=== PATIENT | female | born 1980 | race Caucasian/White ===

== ENCOUNTER 2016-05-30 23:16 | Emergency (ER) | payer OTHER ==
--- NOTE | 2016-06-01 02:29 | ED NURSING NOTES ---
Clinical Report - Nurses [facility] [address] [place] [address] 05/31/2016 4:01 Patient: TYRELL LAROSE TRIAGE Triage time 2212May 30 2016. Chief Complaint: RIGHT LOWER EXTREMITY PAIN. --04:15 Onelia Andres R.N. ( see paper chart for all nursing notes.). --04:15 Onelia Andres R.N. Weight: 45.3 kg estimated. Height/Length: 57 inches Estimated. BMI: 21.6. --04:18 Onelia Andres R.N. Medications Suboxone Sublingual 20mg, daily. --04:16 Onelia Andres R.N. Allergies No Known Drug Allergy. --04:16 Onelia Andres R.N. DISPOSITION / DISCHARGE Departure time: May 30 2016. --04:16 Onelia Andres R.N. Locked/Released at 05/31/2016 4:18 by Onelia Andres R.N.
--- NOTE | 2016-06-01 02:29 | ED NURSING NOTES ---
Clinical Report - Nurses [place] [address] [place] [address] 05/31/2016 4:01 Patient: TYRELL LAROSE TRIAGE Triage time 2212May 30 2016. Chief Complaint: RIGHT LOWER EXTREMITY PAIN. --04:15 Onelia Andres R.N. ( see paper chart for all nursing notes.). --04:15 Onelia Andres R.N. Weight: 45.3 kg estimated. Height/Length: 57 inches Estimated. BMI: 21.6. --04:18 Onelia Andres R.N. Medications Suboxone Sublingual 20mg, daily. --04:16 Onelia Andres R.N. Allergies No Known Drug Allergy. --04:16 Onelia Andres R.N. DISPOSITION / DISCHARGE Departure time: May 30 2016. --04:16 Onelia Andres R.N. Locked/Released at 05/31/2016 4:18 by Onelia Andres R.N.
--- NOTE | 2016-06-01 02:29 | ED MED RECONCILIATION SUMMARY ---
Patient: TYRELL LAROSE Medication Reconciliation Report [facility] VisitID: [id number] [address] [place] [address] 35y, F Registration Date/Time: 05/30/2016 Weight: 45.3 kg Height/Length: 57 in. BMI: 21.6 ALLERGIES: No Known Drug Allergy The patient's Home Medications are listed below: THE FOLLOWING MEDICATIONS NEED TO BE RECONCILED: Suboxone Sublingual 20mg, daily The source(s) of the original Home Medication information: Not obtained. The following Medications were given to the patient in the Emergency Department: None. The following Medications were prescribed to the patient: Acetaminophen (available over the counter): take according to label instructions. -- Darrion Honeycutt DO Motrin (available over the counter): take according to label instructions. -- Darrion Honeycutt DO Bactrim DS 800 mg / 160 mg: take 1 tablet orally every 12 hours for 10 days. No refill. Substitution is permissible. -- Darrion Honeycutt DO Keflex 500 mg: take 1 capsule orally every 6 hours for 10 days. No refill. Substitution is permissible. -- Darrion Honeycutt DO
--- NOTE | 2016-06-01 02:29 | ED CLINICAL REPORT ---
Clinical Report - Physicians/Mid Levels [facility] [address] [place] [address] 05/31/2016 4:01 Patient: TYRELL LAROSE Arrived- By private vehicle. Historian- patient. HISTORY OF PRESENT ILLNESS Chief Complaint: SKIN RASH and TENDER AREA. This started several days ago and is still present. It was gradual in onset and has been waxing/waning. It is described as painful. It has been located on the face and right foot. No cause has been identified. Similar symptoms previously: Recent medical care: Not recently seen/assessed. REVIEW OF SYSTEMS No fever, sore throat, difficulty breathing, headache or chest pain. No abdominal pain, difficulty with urination or vomiting. PAST HISTORY Type C hepatitis (possible - is in the process of work up for this). Substance abuse (tobacco, heroin, methamphetamines). No history of HIV illness. SOCIAL HISTORY Smoker- current status unknown. History of IV drug use: heroin. ADDITIONAL NOTES The nursing notes have been reviewed. PHYSICAL EXAM Vital Signs: Blood pressure: BP 138 / 74. Heart rate: 90. Respiratory rate 16. Temperature: 97.9 oral. Oxygen saturation: 100 % room air. Appearance: Alert. Oriented X3. Patient in mild distress. ENT: Pharynx normal. Neck: Neck supple. CVS: Normal heart rate and rhythm. Heart sounds normal. Respiratory: No respiratory distress. Breath sounds normal. Abdomen: Nontender. No organomegaly. Skin: Medium area of cellulitis with tenderness, erythema and warmth to right foot (lateral, dorsal, distal aspect; no clear skin puncture site; no fluctuance or discharge). No lymphangitis. The rash is macular and erythematous. Rash present on the right cheek (honey-colored crusting with erythematous base). There is thickening, inflammation and crusting. No abscess. Extremities: (right foot cellulitis). Neuro: Oriented X 3. No motor deficit. LABS, X-RAYS, AND EKG Pulse Oximetry: 05/31/2016 04:22 O2 saturation: 100%. (FIO2 - room air). Interpretation: normal. PROGRESS AND PROCEDURES Course of Care: Bactrim DS 2 tabs PO. Keflex 500 mg PO given. Right foot does not seem amenable to I&D now - most c/w general cellulitis. Facial lesions c/w impetigo. No fever or other systemic symptoms. Pt is informed of the need for close out pt follow up and / or return to emergency for new or worsening symptoms or any concerns. Patient/family counseled. Old ED records reviewed. Disposition: Discharged. Condition: stable and improved. CLINICAL IMPRESSION Nonbullous impetigo (involving the right face). Cellulitis of the right foot. Recovering substance abuse- heroin. INSTRUCTIONS Drink plenty of fluids. Do not smoke. No alcohol. Warnings: Further evaluation is necessary. It is very important to follow up with a physician. GENERAL WARNINGS: Return or contact your physician immediately if your condition worsens or changes unexpectedly, if not improving as expected, or if other problems arise. Prescription Medications: Bactrim DS 800 mg / 160 mg: take 1 tablet orally every 12 hours for 10 days. No refill. Substitution is permissible. Keflex 500 mg: take 1 capsule orally every 6 hours for 10 days. No refill. Substitution is permissible. OTC Medications: Acetaminophen (available over the counter): take according to label instructions. Motrin (available over the counter): take according to label instructions. Follow-up: Follow up with your doctor tomorrow. (Electronically signed by Darrion Honeycutt DO 05/31/2016 4:28)
--- NOTE | 2016-06-01 02:29 | ED DISCHARGE INSTRUCTIONS ---
Patient: TYRELL LAROSE General Instructions [facility] VisitID: [id number] [place] [address] 35y, F Registration Date/Time: 05/30/2016 Nonbullous impetigo (involving the right face). Cellulitis of the right foot. Recovering substance abuse- heroin. INSTRUCTIONS Drink plenty of fluids. Do not smoke. No alcohol. Warnings: Further evaluation is necessary. It is very important to follow up with a physician. GENERAL WARNINGS: Return or contact your physician immediately if your condition worsens or changes unexpectedly, if not improving as expected, or if other problems arise. Prescription Medications: Bactrim DS 800 mg / 160 mg: take 1 tablet orally every 12 hours for 10 days. No refill. Substitution is permissible. Keflex 500 mg: take 1 capsule orally every 6 hours for 10 days. No refill. Substitution is permissible. OTC Medications: Acetaminophen (available over the counter): take according to label instructions. Motrin (available over the counter): take according to label instructions. Follow-up: Follow up with your doctor tomorrow. ADDITIONAL INFORMATION Impetigo Impetigo is the name for a bacterial infection of the skin. It is common in children. It may start as an infected insect bite or scratch and spread rapidly to other areas of the body. It is contagious and can be given to other children by touching. The sores usually have a macias brown crust and grow gradually larger as they spread. Impetigo requires treatment with an antibiotic. Home care The following guidelines will help you care for your infection at home: Trim fingernails and cover sores with an adhesive bandage if necessary to prevent scratching. Picking at the sores may leave a scar. Wash hands (yours and your child's) often. This will avoid spreading the infection to other parts of the body and to other children. Do not let your child share washcloths, towels, pillows, sheets, or clothes with others. Wash these items in hot water before using again. The sores should be washed three times a day with soap and water. Use a washcloth to scrub the sores and remove the crust. Then apply an antibacterial cream as directed. If antibiotic pills or liquid was prescribed, be sure your child takes all the medicine until it is gone. Your child should stay out of school until completing two full days of antibiotic treatment. Use acetaminophen for fever, fussiness or discomfort, unless another medicine was prescribed. In infants over six months of age, you may use ibuprofen instead of acetaminophen. If your child has chronic liver or kidney disease or has ever had a stomach ulcer or GI bleeding, talk with your doctor before using these medicines. (Aspirin should never be used in anyone under 18 years of age who is ill with a fever. It may cause severe liver damage. Follow-up care Follow up with your doctor or this facility if the sores continue to spread after three days of treatment. It will take about 710 days to heal completely. When to seek medical care Get prompt medical attention if any of the following occur: Increasing number of sores or spreading areas of redness after two days of treatment with antibiotics Increasing swelling, or pain Fever of 100.4F (38C) oral or 101.4F (38.5C) rectal or higher, not better with fever medication Increased amounts of fluid or pus coming from the sores Unusual drowsiness, weakness, or change in behavior Loss of appetite or vomiting Cellulitis You have an infection of the skin known as cellulitis. This usually starts with a scrape, cut, insect bite, blister or other opening in the skin which becomes infected. This is a serious condition. It must be watched closely to be sure the infection is not spreading. With antibiotic treatment, the size of the red area will gradually shrink in size until the skin returns to normal. This will take 7-10 days. The red area should never increase in size once the antibiotic medicine has been started. Occasionally, an infection will be resistant to one antibiotic and another one will have to be used. Home Care: 1) Limit the use of the affected part, since excess movement can cause the infection to spread. 2) If the infection is on your leg, walk as little as possible during the first few days of the treatment. Keep your leg elevated while sitting. This will reduce swelling. 3) Take all of the antibiotic medicine exactly as directed until it is gone. Be careful not to miss any doses, especially during the first seven days. Follow Up with your doctor or this facility as directed. Check the infected area daily for the warning signs listed below. Get Prompt Medical Attention if any of the following occur: -- Spreading area of redness -- Increasing swelling or pain -- Appearance of pus or drainage -- Fever over 100.4 F (38.0 C) oral, or over 101.4 F (38.6 C) rectal, after two days on antibiotics Sulfamethoxazole, Trimethoprim Oral tablet What is this medicine? SULFAMETHOXAZOLE; TRIMETHOPRIM or SMX-TMP (suhl fuh meth OK jamila zohl; trye METH oh prim) is a combination of a sulfonamide antibiotic and a second antibiotic, trimethoprim. It is used to treat or prevent certain kinds of bacterial infections. It will not work for colds, flu, or other viral infections. How should I use this medicine? Take this medicine by mouth with a full glass of water. Follow the directions on the prescription label. Take your medicine at regular intervals. Do not take it more often than directed. Do not skip doses or stop your medicine early. Talk to your electrical engineering teacher regarding the use of this medicine in children. Special care may be needed. This medicine has been used in children as young as 2 months of age. What side effects may I notice from receiving this medicine? Side effects that you should report to your doctor or health home health care worker as soon as possible: allergic reactions like skin rash or hives, swelling of the face, lips, or tongue breathing problems fever or chills, sore throat irregular heartbeat, chest pain joint or muscle pain pain or difficulty passing urine red pinpoint spots on skin redness, blistering, peeling or loosening of the skin, including inside the mouth unusual bleeding or bruising unusually weak or tired yellowing of the eyes or skin Side effects that usually do not require medical attention (report to your doctor or health home health care worker if they continue or are bothersome): diarrhea dizziness headache loss of appetite nausea, vomiting nervousness What may interact with this medicine? Do not take this medicine with any of the following medications: aminobenzoate potassium dofetilide metronidazole This medicine may also interact with the following medications: RAMIRO inhibitors like benazepril, enalapril, lisinopril, and ramipril cyclosporine digoxin diuretics indomethacin medicines for diabetes methenamine methotrexate phenytoin potassium supplements pyrimethamine sulfinpyrazone tricyclic antidepressants warfarin What if I miss a dose? If you miss a dose, take it as soon as you can. If it is almost time for your next dose, take only that dose. Do not take double or extra doses. Where should I keep my medicine? Keep out of the reach of children. Store at room temperature between 20 to 25 degrees C (68 to 77 degrees F). Protect from light. Throw away any unused medicine after the expiration date. What should I tell my health care provider before I take this medicine? They need to know if you have any of these conditions: anemia asthma being treated with anticonvulsants if you frequently drink alcohol containing drinks kidney disease liver disease low level of folic acid or [id number] dehydrogenase poor nutrition or malabsorption porphyria severe allergies thyroid disorder an unusual or allergic reaction to sulfamethoxazole, trimethoprim, sulfa drugs, other medicines, foods, dyes, or preservatives or trying to get breast-feeding What should I watch for while using this medicine? Tell your doctor or health home health care worker if your symptoms do not improve. Drink several glasses of water a day to reduce the risk of kidney problems. Do not treat diarrhea with over the counter products. Contact your doctor if you have diarrhea that lasts more than 2 days or if it is severe and watery. This medicine can make you more sensitive to the sun. Keep out of the sun. If you cannot avoid being in the sun, wear protective clothing and use a sunscreen. Do not use sun lamps or tanning beds/booths. Cephalexin Monohydrate Oral tablet What is this medicine? CEPHALEXIN (sef a BRUNO in) is a cephalosporin antibiotic. It is used to treat certain kinds of bacterial infections It will not work for colds, flu, or other viral infections. How should I use this medicine? Take this medicine by mouth with a full glass of water. Follow the directions on the prescription label. This medicine can be taken with or without food. Take your medicine at regular intervals. Do not take your medicine more often than directed. Take all of your medicine as directed even if you think you are better. Do not skip doses or stop your medicine early. Talk to your electrical engineering teacher regarding the use of this medicine in children. While this drug may be prescribed for selected conditions, precautions do apply. What side effects may I notice from receiving this medicine? Side effects that you should report to your doctor or health home health care worker as soon as possible: allergic reactions like skin rash, itching or hives, swelling of the face, lips, or tongue breathing problems pain or trouble passing urine redness, blistering, peeling or loosening of the skin, including inside the mouth severe or watery diarrhea unusually weak or tired yellowing of the eyes, skin Side effects that usually do not require medical attention (report to your doctor or health home health care worker if they continue or are bothersome): gas or heartburn genital or anal irritation headache joint or muscle pain nausea, vomiting What may interact with this medicine? probenecid some other antibiotics What if I miss a dose? If you miss a dose, take it as soon as you can. If it is almost time for your next dose, take only that dose. Do not take double or extra doses. There should be at least 4 to 6 hours between doses. Where should I keep my medicine? Keep out of the reach of children. Store at room temperature between 59 and 86 degrees F (15 and 30 degrees C). Throw away any unused medicine after the expiration date. What should I tell my health care provider before I take this medicine? They need to know if you have any of these conditions: kidney disease stomach or intestine problems, especially colitis an unusual or allergic reaction to cephalexin, other cephalosporins, penicillins, other antibiotics, medicines, foods, dyes or preservatives or trying to get breast-feeding What should I watch for while using this medicine? Tell your doctor or health home health care worker if your symptoms do not begin to improve in a few days. Do not treat diarrhea with over the counter products. Contact your doctor if you have diarrhea that lasts more than 2 days or if it is severe and watery. If you have diabetes, you may get a false-positive result for sugar in your urine. Check with your doctor or health home health care worker. Acetaminophen Oral tablet What is this medicine? ACETAMINOPHEN (a set a VADIM tyler fen) is a pain reliever. It is used to treat mild pain and fever. How should I use this medicine? Take this medicine by mouth with a glass of water. Follow the directions on the package or prescription label. Take your medicine at regular intervals. Do not take your medicine more often than directed. Talk to your electrical engineering teacher regarding the use of this medicine in children. While this drug may be prescribed for children as young as 6 years of age for selected conditions, precautions do apply. What side effects may I notice from receiving this medicine? Side effects that you should report to your doctor or health home health care worker as soon as possible: allergic reactions like skin rash, itching or hives, swelling of the face, lips, or tongue breathing problems fever or sore throat redness, blistering, peeling or loosening of the skin, including inside the mouth trouble passing urine or change in the amount of urine unusual bleeding or bruising unusually weak or tired yellowing of the eyes or skin Side effects that usually do not require medical attention (report to your doctor or health home health care worker if they continue or are bothersome): headache nausea, stomach upset What may interact with this medicine? alcohol imatinib isoniazid other medicines with acetaminophen What if I miss a dose? If you miss a dose, take it as soon as you can. If it is almost time for your next dose, take only that dose. Do not take double or extra doses. Where should I keep my medicine? Keep out of reach of children. Store at room temperature between 20 and 25 degrees C (68 and 77 degrees F). Protect from moisture and heat. Throw away any unused medicine after the expiration date. What should I tell my health care provider before I take this medicine? They need to know if you have any of these conditions: if you frequently drink alcohol containing drinks liver disease an unusual or allergic reaction to acetaminophen, other medicines, foods, dyes or preservatives or trying to get breast-feeding What should I watch for while using this medicine? Tell your doctor or health home health care worker if the pain lasts more than 10 days (5 days for children), if it gets worse, or if there is a new or different kind of pain. Also, check with your doctor if a fever lasts for more than 3 days. Do not take other medicines that contain acetaminophen with this medicine. Always read labels carefully. If you have questions, ask your doctor or pharmacist. If you take too much acetaminophen get medical help right away. Too much acetaminophen can be very dangerous and cause liver damage. Even if you do not have symptoms, it is important to get help right away. Ibuprofen Oral tablet What is this medicine? IBUPROFEN (eye BYOO proe fen) is a non-steroidal anti-inflammatory drug (NSAID). It is used for dental pain, fever, headaches or migraines, osteoarthritis, rheumatoid arthritis, or painful monthly periods. It can also relieve minor aches and pains caused by a cold, flu, or sore throat. How should I use this medicine? Take this medicine by mouth with a glass of water. Follow the directions on the prescription label. Take this medicine with food if your stomach gets upset. Try to not lie down for at least 10 minutes after you take the medicine. Take your medicine at regular intervals. Do not take your medicine more often than directed. A special MedGuide will be given to you by the pharmacist with each prescription and refill. Be sure to read this information carefully each time. Talk to your electrical engineering teacher regarding the use of this medicine in children. Special care may be needed. What side effects may I notice from receiving this medicine? Side effects that you should report to your doctor or health home health care worker as soon as possible: allergic reactions like skin rash, itching or hives, swelling of the face, lips, or tongue black or bloody stools, blood in the urine or in vomit breathing problems changes in vision chest pain general ill feeling or flu-like symptoms nausea or vomiting redness, blistering, peeling or loosening of the skin, including inside the mouth slurred speech or weakness on one side of the body stomach pain unexplained weight gain or swelling unusually weak or tired yellowing of eyes or skin Side effects that usually do not require medical attention (report to your doctor or health home health care worker if they continue or are bothersome): constipation or diarrhea dizziness gas or heartburn stomach upset What may interact with this medicine? Do not take this medicine with any of the following medications: cidofovir ketorolac methotrexate pemetrexed This medicine may also interact with the following medications: alcohol aspirin diuretics lithium other drugs for inflammation like prednisone warfarin What if I miss a dose? If you miss a dose, take it as soon as you can. If it is almost time for your next dose, take only that dose. Do not take double or extra doses. Where should I keep my medicine? Keep out of the reach of children. Store at room temperature between 15 and 30 degrees C (59 and 86 degrees F). Keep container tightly closed. Throw away any unused medicine after the expiration date. What should I tell my health care provider before I take this medicine? They need to know if you have any of these conditions: asthma cigarette smoker drink more than 3 alcohol containing drinks a day heart disease or circulation problems such as heart failure or leg edema (fluid retention) high blood pressure kidney disease liver disease stomach bleeding or ulcers an unusual or allergic reaction to ibuprofen, aspirin, other NSAIDS, other medicines, foods, dyes, or preservatives or trying to get breast-feeding What should I watch for while using this medicine? Tell your doctor or healthcare professional if your symptoms do not start to get better or if they get worse. This medicine does not prevent heart attack or stroke. In fact, this medicine may increase the chance of a heart attack or stroke. The chance may increase with longer use of this medicine and in people who have heart disease. If you take aspirin to prevent heart attack or stroke, talk with your doctor or health home health care worker. Do not take other medicines that contain aspirin, ibuprofen, or naproxen with this medicine. Side effects such as stomach upset, nausea, or ulcers may be more likely to occur. Many medicines available without a prescription should not be taken with this medicine. This medicine can cause ulcers and bleeding in the stomach and intestines at any time during treatment. Ulcers and bleeding can happen without warning symptoms and can cause . To reduce your risk, do not smoke cigarettes or drink alcohol while you are taking this medicine. You may get drowsy or dizzy. Do not drive, use machinery, or do anything that needs mental alertness until you know how this medicine affects you. Do not stand or sit up quickly, especially if you are an older patient. This reduces the risk of dizzy or fainting spells. This medicine can cause you to bleed more easily. Try to avoid damage to your teeth and gums when you brush or floss your teeth. You have been given the following additional information: Impetigo (Child) Cellulitis Sulfamethoxazole, Trimethoprim Oral tablet Cephalexin Monohydrate Oral tablet Acetaminophen Oral tablet Ibuprofen Oral tablet (Electronically signed by Darrion Honeycutt DO 05/31/2016 4:28)
--- NOTE | 2016-06-01 02:29 | ED MAR SUMMARY ---
..... Medication Administration Record [facility] [address] [place] [id number] Patient: HOLLIMARIA ANTONIATYRELL Sadler Visit ID: [id number] 35y, F Weight: 45.3 kg Height/Length: 57 in BMI: 21.6 ALLERGIES: No Known Drug Allergy
--- NOTE | 2016-06-01 02:29 | ED MAR SUMMARY ---
..... Medication Administration Record [facility] [address] [place], [place] [id number] Patient: HOLLIMARIA ANTONIATYRELL Sadler Visit ID: [id number] 35y, F Weight: 45.3 kg Height/Length: 57 in BMI: 21.6 ALLERGIES: No Known Drug Allergy
--- NOTE | 2016-06-01 02:29 | ED MED RECONCILIATION SUMMARY ---
Patient: TYRELL LAROSE Medication Reconciliation Report [facility] VisitID: [id number] [address] [place] [address] 35y, F Registration Date/Time: 05/30/2016 Weight: 45.3 kg Height/Length: 57 in. BMI: 21.6 ALLERGIES: No Known Drug Allergy The patient's Home Medications are listed below: THE FOLLOWING MEDICATIONS NEED TO BE RECONCILED: Suboxone Sublingual 20mg, daily The source(s) of the original Home Medication information: Not obtained. The following Medications were given to the patient in the Emergency Department: None. The following Medications were prescribed to the patient: Acetaminophen (available over the counter): take according to label instructions. -- Darrion Honeycutt DO Motrin (available over the counter): take according to label instructions. -- Darrion Honeycutt DO Bactrim DS 800 mg / 160 mg: take 1 tablet orally every 12 hours for 10 days. No refill. Substitution is permissible. -- Darrion Honeycutt DO Keflex 500 mg: take 1 capsule orally every 6 hours for 10 days. No refill. Substitution is permissible. -- Darrion Honeycutt DO
== END 2016-05-31 | disposition home or self-care (01) ==
LOC: ED SRH 23:16
DX: L01.00 Impetigo, unspecified (principal); L03.115 Cellulitis of right lower limb; F11.20 Opioid dependence, uncomplicated; F17.200 Nicotine dependence, unspecified, uncomplicated

== ENCOUNTER 2016-08-13 06:29 | Emergency (ER) | payer OTHER ==
--- NOTE | 2016-08-13 09:33 | ED ORDER SUMMARY ---
..... Patient: TYRELL LAROSE OrderSheet [facility] VisitID: [id number] [address] [place], [place] [id number] 35y, F Registration Date/Time: 08/13/2016 ORDER SHEET Weight: 45.3 kg (estimated) Allergies: None GENERAL ORDERS: UA-Culture if indicated Urgent (06:59 08/13/2016 Manny ODOM) (Ack 7:01 AMcQuoid ER Tech1) (7:51 MWinterer R.N.) Cardiac Panel Stat (06:08/13/2016 Manny ODOM) (Ack 7:01 AMcQuoid ER Tech1) (8:04 TBergley) Urine Urgent (:08/13/2016 Manny ODOM) (Ack 7:01 AMcQuoid ER Tech1) (7:51 MWinterer R.N.) Urine Drug Screen Urgent (06:08/13/2016 Manny ODOM) (Ack 7:01 AMcQuoid ER Tech1) (7:51 MWinterer R.N.) MEDICATION ORDERS: Clonidine Topical 0.2 mg (NOW) (06:58 08/13/2016 Manny ODOM) (Ack 7:24 MWinterer R.N.) (7:44 MWinterer R.N.) IV FLUIDS: IV NS : initial bolus 1000 mL (1000 mL/hr), then none - for X1 (NOW); Routine (06:58 08/13/2016 Manny ODOM) (Ack 7:24 MWinterer R.N.) (7:51 MWinterer R.N.) Ativan IV 1 mg (NOW) (06:58 08/13/2016 Manny ODOM) (Ack 7:24 MWinterer R.N.) (7:51 MWinterer R.N.) Zofran IV 4 mg (NOW) (06:58 08/13/2016 Manny ODOM) (Ack 7:24 MWinterer R.N.) (7:51 MWinterer R.N.) Ativan IV 1 mg (NOW) (08:53 08/13/2016 SReitz R.N. verbal order read back to Manny ODOM) (8:56 Luann Carrillo) Ativan IV 1 mg (NOW) (08:54 08/13/2016 Manny ODOM) (Cancelled: Duplicate Order8:54 Manny ODOM) ORDER SHEET NOTES: [Electronically signed by Kanika Barajas R.N. (09:57 08/13/2016)] [Electronically signed by Mau Swanson MD (22:49 08/16/2016)] [Electronically locked/signed by Kanika Barajas R.N. (09:57 08/13/2016)]
--- NOTE | 2016-08-13 09:33 | ED NURSING NOTES ---
Clinical Report - Nurses [facility] [address] [place] [address] 08/13/2016 6:29 Patient: TYRELL LAROSE TRIAGE Triage time 06:30. Acuity: LEVEL 4. Chief Complaint: NAUSEA, VOMITING and DIARRHEA. 06:42 08/13/16. Alert. No acute distress. SEPSIS SCREEN: Sepsis Screen. Negative (no infection suspected/documented). THOM COMA SCORE: [place] Coma Scale: 15- eyes open spontaneously (4); best verbal response- oriented x 4 (5); best motor response- obeys commands (6). --06:42 Cherry Maurer R.N. 06:34 08/13/16. BP: 125/76. HR: 67. RR: 12. O2 saturation: 100%. Temp: 97.8 F. Pain level now: 05/05. --06:42 Cherry Maurer R.N. Weight: 45.3 kg estimated. Height/Length: 65 inches Per Patient. BMI: 16.6. --06:42 Cherry Maurer R.N. Medications None. --06:36 Cherry Maurer R.N. Allergies None. --06:36 Cherry Maurer R.N. History Arrived by EMS. Historian: patient. Primary physician (No PCP). This started last night. ( Patient states she is trying to stop using meth and heroin but has "never had this bad of withdrawals before"). Reports muscle aches. ( anxiety). Treatment CHIEF LIFESTYLE OFFICER: None. PAST MEDICAL HX: Immunizations: up-to-date. Denies current . SOCIAL HX: Heavy tobacco smoker- less than 1 pack per day. History of drug use: heroin, methamphetamines. Recently used drugs days ago. No alcohol use. FALL RISK ASSESSMENT: Fall risk assessment completed. No fall risk identified. NUTRITIONAL RISK ASSESSMENT: The nutritional risk assessment revealed no deficiencies. FUNCTIONAL ASSESSMENT: Functional assessment: no impairments noted. LEARNING NEEDS ASSESSMENT: The learning needs assessment revealed no barriers. SKIN INTEGRITY ASSESSMENT: Skin integrity risk assessment completed. No skin integrity risk identified. --06:42 Cherry Maurer R.N. Treatment CHIEF LIFESTYLE OFFICER: EMS treatment CHIEF LIFESTYLE OFFICER verbally communicated. BP: 122 / 78. HR: 64. RR: 18. O2 saturation: 99 room air. ( EMS reports patient called them due to repeated vomiting through the night. EMS states patient stopped using meth and heroin "a couple days ago"). --06:48 Cherry Maurer R.N. PROBLEMS: Hepatitis. Substance Abuse. Impetigo. Cellulitis. Dental Caries. Dental Pain. Immunizations. LNMP - Last Normal Menstrual Period. . Tooth decay. --06:36 Cherry Maurer R.N. Interventions ID band on patient. To treatment room. --06:42 Cherry Maurer R.N. PHYSICAL ASSESSMENT 06:44 08/13/16. To room via stretcher. GENERAL / NEURO / PSYCH: Alert. Oriented X 4. Appears anxious. HEENT: No facial asymmetry noted. Mucous membranes are pink. RESPIRATORY: Respirations not labored. Chest nontender. Breath sounds within normal limits. CVS: Capillary refill less than 2 seconds. Pulses within normal limits. GI / : Abdomen soft and normal bowel sounds. SKIN: Skin intact. Skin is warm and dry. Normal skin turgor. --06:44 Cherry Maurer R.N. NURSING PROGRESS NOTES 06:44 08/13/16. Reassurance given. Two patient identifiers checked. Call light placed in reach. Side rails up x 2. Bed placed in lowest position. Brakes of bed on. Patient ready for evaluation- chart flagged and notification provided. --06:44 Cherry Maurer R.N. 06:55 08/13/16. ( Lights dimmed. Patient stated "I need something for the withdrawal as soon as possible and I need someone to call my mom." This RN brought patient a phone to call her mother. Patient stated "No. I don't want to right now." ED physician notified of patient's request for medication.). --06:55 Cherry Maurer R.N. Care transferred and report received (from ASH Carey). --07:18 Kanika Barajas R.N. 07:39 08/13/2016 Clonidine Topical 0.2 mg. Applied to the left upper arm. Allergies verified and confirmed 5 rights. --07:44 Miguel Birch R.N. 07:48 08/13/2016 Site #1 started via IV in the left hand with an 22g angiocath, with aseptic technique and good blood return; one attempt. Saline lock flushed with 10 mL saline (accessed by miguel Deluna RN). --07:51 Miguel Birch R.N. 07:49 08/13/2016 Started bag #1 1000 mL IV Fluids IV NS (Saline); at 1000 mL/hr over 1 hour(s) via site #1 via IV pump. Allergies verified and confirmed 5 rights. IV patency established. IV site checked: no pain, redness, or swelling. IV flushed thoroughly pre- and post-medication administration. --07:51 Miguel Birch R.N. 07:50 08/13/2016 Zofran (Ondansetron HCl) IVP 4 mg given over 1 minute(s) via site #1. Allergies verified and confirmed 5 rights. IV patency established. IV site checked: no pain, redness, or swelling. IV flushed thoroughly pre- and post-medication administration. --07:51 Miguel Birch R.N. 07:51 08/13/2016 Ativan (LORazepam) IVP 1 mg given over 1 minute(s) via site #1. Allergies verified, confirmed 5 rights and sedative warning given to the patient. IV patency established. IV site checked: no pain, redness, or swelling. IV flushed thoroughly pre- and post-medication administration. --07:51 Miguel Brich R.N. ( lab notified for blood draw.). --07:57 Kanika Barajas R.N. Reassessment after medication administered. She reports no complaints, she is resting quietly and she has had no adverse reaction. Overall patient status- she states feels the same. --07:58 Kanika Barajas R.N. 07:58 08/13/16. BP: 124/67. HR: 62. RR: 16. O2 saturation: 100%. Pain level now 7/10. --07:58 Jenn, Kanika, R.N. ( lab at the bedside for blood draw.). --07:59 Kanika Barajas R.N. 08:56 08/13/2016 Ativan (LORazepam) IVP 1 mg given over 2 minute(s) via site #1. Allergies verified, confirmed 5 rights and sedative warning given to the patient. IV patency established. IV site checked: no pain, redness, or swelling. IV flushed thoroughly pre- and post-medication administration. IVP given by RN. --08:56 Eric Santana R.N. 09:51 08/13/2016 IV Fluids IV NS Discontinued: bag #1 infused. Total amount infused: 1000 mL. IV patency established. IV site checked: no pain, redness, or swelling. IV flushed thoroughly. --09:51 Kanika Barajas R.N. DISPOSITION / DISCHARGE 09:50 08/13/2016 Site #1 removed upon discharge. Catheter intact. Manual pressure and bandaid applied. --09:50 Kanika Barajas R.N. Condition at departure: stable. No learning barriers present. Discharge instructions provided and reviewed with the patient. Reviewed medication(s) side effects, precautions, dosing and course information. Prescription(s) given to the patient. Reviewed referral to family practice for followup. Patient verbalized understanding. Written instructions provided in Occitan. The patient was discharged home and accompanied by family. She left the Emergency Department ambulatory and via private vehicle. Family member driving. Medication list reviewed and validated. --09:51 Kanika Barajas R.N. 09:50 08/13/16. BP: 110/61. HR: 90. RR: 16. O2 saturation: 100%. Temp: 98.7 F. Pain level now 0/10. --09:51 Kanika Barajas R.N. Departure time: :51. --09:51 Kanika Barajas R.N. Locked/Released at 08/13/2016 9:57 by Kanika Barajas R.N.
--- NOTE | 2016-08-13 09:33 | ED CLINICAL REPORT ---
Clinical Report - Physicians/Mid Levels [facility] [address] [place] [address] 08/13/2016 6:29 Patient: TYRELL LAROSE Time Seen: 06:54 Aug 13 2016. Arrived- By ambulance. Historian- patient and EMS personnel. CPT: ER phys charges level 4 (#[id number]). HISTORY OF PRESENT ILLNESS Chief Complaint: "GOT THE SHAKES". ; N/V/D. Symptoms started yesterday. Substances abused: Amphetamines and heroin. The patient has had tremors. The symptoms are described as moderate. No injuries noted. Similar symptoms previously: Recent medical care: Not recently seen/assessed. REVIEW OF SYSTEMS The patient has experienced sweats. No headache, dizziness, weakness, chest pain or palpitations. No black stools, sore throat, cough, difficulty breathing or skin abscess. No joint pain or enlarged lymph nodes. No difficulty walking. All systems otherwise negative, except as recorded above. PAST HISTORY Hepatitis. Substance Abuse. Impetigo. Cellulitis. Dental Caries. Dental Pain. Immunizations. LNMP - Last Normal Menstrual Period. . Tooth decay. Medications: None. Allergies: None. SOCIAL HISTORY Heavy tobacco smoker (cigarette)- less than 1 pack per day. History of heavy drug use: heroin, methamphetamines. No alcohol use. Has social support. ADDITIONAL NOTES The nursing notes have been reviewed. PHYSICAL EXAM Vital Signs: 08/13/2016 06:34 BP: 125/76. HR: 67. RR: 12. O2 saturation: 100%. Temp: 97.8 F. Pain level now: 2/10. Appearance: Alert. Anxious. Patient in mild distress. Head: Head atraumatic. Eyes: Pupils equal, round and reactive to light. ENT: Airway intact. Moist mucous membranes. Pharynx normal. Neck: Normal inspection. CVS: Normal heart rate and rhythm. Heart sounds normal. Pulses normal. Respiratory: No respiratory distress. Breath sounds normal. Abdomen: Soft and nontender. Back: Normal inspection. Skin: Skin warm. Normal skin color. No rash. Extremities: Extremities exhibit normal ROM. No lower extremity edema. Neuro: Alert. Oriented X 3. Mood/affect normal. Speech normal. Cranial nerves normal (as tested). No cerebellar findings. No motor deficit. No sensory deficit. Reflexes normal. (tremor at rest . Agitation.). LABS, X-RAYS, AND EKG Laboratory Tests: UA-Culture if indicated: (KUMAR: 08/13/2016 07:50) ( [facility] 08/13/2016 08:24) Final results Test Result Flag Units (Reference) URINE COLOR YELLOW URINE APPEARANCE CLEAR URINE GLUCOSE NEGATIVE (NEGATIVE) URINE BILIRUBIN NEGATIVE (NEGATIVE) URINE KETONE TRACE (NEGATIVE) URINE SPECIFIC GRAVITY 1.015 (1.010-1.030) URINE PH 6.5 (5.0-8.0) URINE PROTEIN TRACE (NEGATIVE) URINE UROBILINOGEN 0.2 EU/dL (0.2-1.0) URINE NITRITE NEGATIVE (NEGATIVE) URINE BLOOD TRACE-LYSED (NEGATIVE) URINE LEUK ESTERASE NEGATIVE (NEGATIVE) URINE RBC 1-3 rbc/hpf (0-1) URINE WBC NONE SEEN wbc/hpf (0-1) URINE EPITHELIAL CELLS 0-1 EPI/hpf (0-5) URINE BACTERIA NONE SEEN (NONE SEEN) URINE COMMENT CULT NOT INDICATED 1+ MUCOUSURINE CULTURES ARE SET-UP BASED ON THE FOLLOWING CRITERIA:POSITIVE NITRITEPOSITIVE LEUKOCYTE ESTERASEGREATER THAN 10 WHITE BLOOD CELLSMODERATE (2+) OR GREATER BACTERIA Urine: (KUMAR: 08/13/2016 07:50) ( [facility] 08/13/2016 08:07) Final results Test Result Flag Units (Reference) URINE NEGATIVE CBC w Diff: (KUMAR: 08/13/2016 08:03) ( [facility] 08/13/2016 08:18) Final results Test Result Flag Units (Reference) WHITE BLOOD COUNT 8.7 K/uL (4.5-11.5) RED BLOOD COUNT 4.47 M/uL (4.00-5.20) HEMOGLOBIN 12.3 gm/dL (12.0-16.0) HEMATOCRIT 37.5 % (36.0-46.0) MEAN CELL VOLUME 84 fL (80-100) MEAN CORPUSCULAR HGB 28 pg (26-34) MEAN CORPUSCULAR HGB CONC 33 g/dL (31-37) RED CELL DISTRIBUTION WIDTH 14.7 % (11.6-14.8) PLATELET COUNT 283 K/uL (150-400) NEUTROPHIL % 82.1 H % (50-75) LYMPH % 15.7 L % (25-40) MONO % 2.1 L % (3-14) EOSINOPHIL % 0 % (0-4) BASOPHIL % 0.1 % (0-2) Urine Drug Screen: (KUMAR: 08/13/2016 07:50) ( [facility] Final results Test Result Flag Units (Reference) AMPHETAMINE/METHAMPHETAMINE NEGATIVE (NEGATIVE) BARBITURATE NEGATIVE (NEGATIVE) BENZODIAZEPINE NEGATIVE (NEGATIVE) CANNABINOID POSITIVE H (NEGATIVE) COCAINE NEGATIVE (NEGATIVE) ECSTASY NEGATIVE (NEGATIVE) METHADONE NEGATIVE (NEGATIVE) OPIATE POSITIVE H (NEGATIVE) The urine drug screen is a qualitative screening test fordrug overdose and abuse. All screen results should beconsidered as presumptive.Drugs screened for are as follows:BenzodiazepinesCocaineAmphetamines/MetamphetaminesTHC (Tetrahydrocannabinol)OpiatesBarbituratesEcstasyMethadonePositive results are unconfirmed. For confirmation, notifythe lab for the specimen to be sent to the reference lab.All confirmations must be performed by a differentmethodology.The ingestion of natural herbal and plant productscontaining Ephedra/Ephedra metabolites can produce in urineone or more substances capable of cross reacting withamphetamine/methamphetamine immunoassays. These testsprovide a preliminary result only. A more specificalternative chemical method must be used to obtain aconfirmed analytical result. CHEM 13 PANEL: (KUMAR: 08/13/2016 08:03) ( [facility] 08/13/2016 09:11) Final results Test Result Flag Units (Reference) GLUCOSE 121 H mg/dL (70-110) BUN 10 mg/dL (7-18) CREATININE 0.5 L mg/dL (0.6-1.3) Estimated GFR >60 mL/min Estimated GFR- >60 mL/min Note: Persistent reduction over 3 months in eGFR<60 mL/min/1.73 m2 defines CKD. Patients with eGFR values>=60 mL/min/1.73 m2 may also have CKD if evidence ofpersistent proteinuria. Additional information may be foundat www.kidney.org. SODIUM 141 mmol/L (136-145) POTASSIUM 3.3 L mmol/L (3.5-5.1) CHLORIDE 103 mmol/L (98-107) CARBON DIOXIDE 25 mmol/L (21-32) CALCIUM 8.7 mg/dL (8.5-10.1) TOTAL PROTEIN 7.8 g/dL (6.4-8.2) ALBUMIN 3.5 g/dL (3.3-5.0) BILIRUBIN, TOTAL 0.4 mg/dL (0.0-1.0) ALKALINE PHOSPHATASE 79 U/L (46-116) AST (SGOT) 25 U/L (15-37) ALT (SGPT) 46 U/L (12-78) CPK 29 U/L (24-260) TROPONIN I <0.05 ng/mL (0.00-1.5) TROPONIN REFERENCE RANGE:<0.1 NEGATIVE0.1-1.5 INDETERMINANT>1.5 POSITIVE MAGNESIUM 2.1 mg/dL (1.8-2.4) . PROGRESS AND PROCEDURES Course of Care: IV NS Clinidine patch 0.2 mg \\Ativan 1 mg IV times 2. Patient is stable. Symptoms much better. Patient/family counseled. Disposition: Discharged. Condition: stable. CLINICAL IMPRESSION Narcotic withdrawal Substance abuse problems: abuse of opiates and methamphetamine. INSTRUCTIONS Stay with responsible adult family member (or other responsible adult) for three days until better. (Wear clonidine patch for the next week. Get to narcotics annonymous. Get to in patient program.). Warnings: Further evaluation is necessary. SEDATIVE MEDICATION: You were given sedative medication during your visit. Do not drive or operate dangerous machinery. GENERAL WARNINGS: Return or contact your physician immediately if your condition worsens or changes unexpectedly, if not improving as expected, or if other problems arise. Prescription Medications: Zofran (orally disintegrating tablets) 4 mg: take 1 orally every 6 hours as needed for nausea. Dispense ten (10). No refill. Substitution is permissible. Ativan 0.5 mg: take 1-2 orally every 6 hours as needed. Dispense ten (10). No refill. Follow-up: Follow up with your doctor in five days. Call for an appointment. Understanding of the discharge instructions verbalized by patient. (Electronically signed by Mau Swanson MD 08/16/2016 22:49)
--- NOTE | 2016-08-13 09:33 | ED NURSING NOTES ---
Clinical Report - Nurses [facility] [address] [place] [place] [address] 08/13/2016 6:29 Patient: TYRELL LAROSE TRIAGE Triage time 06:30. Acuity: LEVEL 4. Chief Complaint: NAUSEA, VOMITING and DIARRHEA. 06:42 08/13/16. Alert. No acute distress. SEPSIS SCREEN: Sepsis Screen. Negative (no infection suspected/documented). THOM COMA SCORE: [place] Coma Scale: 15- eyes open spontaneously (4); best verbal response- oriented x 4 (5); best motor response- obeys commands (6). --06:42 Cherry Maurer R.N. 06:34 08/13/16. BP: 125/76. HR: 67. RR: 12. O2 saturation: 100%. Temp: 97.8 F. Pain level now: 05/05. --06:42 Cherry Maurer R.N. Weight: 45.3 kg estimated. Height/Length: 65 inches Per Patient. BMI: 16.6. --06:42 Cherry Maurer R.N. Medications None. --06:36 Cherry Maurer R.N. Allergies None. --06:36 Cherry Maurer R.N. History Arrived by EMS. Historian: patient. Primary physician (No PCP). This started last night. ( Patient states she is trying to stop using meth and heroin but has "never had this bad of withdrawals before"). Reports muscle aches. ( anxiety). Treatment HOBBING PRESS OPERATOR: None. PAST MEDICAL HX: Immunizations: up-to-date. Denies current . SOCIAL HX: Heavy tobacco smoker- less than 1 pack per day. History of drug use: heroin, methamphetamines. Recently used drugs days ago. No alcohol use. FALL RISK ASSESSMENT: Fall risk assessment completed. No fall risk identified. NUTRITIONAL RISK ASSESSMENT: The nutritional risk assessment revealed no deficiencies. FUNCTIONAL ASSESSMENT: Functional assessment: no impairments noted. LEARNING NEEDS ASSESSMENT: The learning needs assessment revealed no barriers. SKIN INTEGRITY ASSESSMENT: Skin integrity risk assessment completed. No skin integrity risk identified. --06:42 Cherry Maurer R.N. Treatment HOBBING PRESS OPERATOR: EMS treatment HOBBING PRESS OPERATOR verbally communicated. BP: 122 / 78. HR: 64. RR: 18. O2 saturation: 99 room air. ( EMS reports patient called them due to repeated vomiting through the night. EMS states patient stopped using meth and heroin "a couple days ago"). --06:48 Cherry Maurer R.N. PROBLEMS: Hepatitis. Substance Abuse. Impetigo. Cellulitis. Dental Caries. Dental Pain. Immunizations. LNMP - Last Normal Menstrual Period. . Tooth decay. --06:36 Cherry Maurer R.N. Interventions ID band on patient. To treatment room. --06:42 Cherry Maurer R.N. PHYSICAL ASSESSMENT 06:44 08/13/16. To room via stretcher. GENERAL / NEURO / PSYCH: Alert. Oriented X 4. Appears anxious. HEENT: No facial asymmetry noted. Mucous membranes are pink. RESPIRATORY: Respirations not labored. Chest nontender. Breath sounds within normal limits. CVS: Capillary refill less than 2 seconds. Pulses within normal limits. GI / : Abdomen soft and normal bowel sounds. SKIN: Skin intact. Skin is warm and dry. Normal skin turgor. --06:44 Cherry Maurer R.N. NURSING PROGRESS NOTES 06:44 08/13/16. Reassurance given. Two patient identifiers checked. Call light placed in reach. Side rails up x 2. Bed placed in lowest position. Brakes of bed on. Patient ready for evaluation- chart flagged and notification provided. --06:44 Cherry Maurer R.N. 06:55 08/13/16. ( Lights dimmed. Patient stated "I need something for the withdrawal as soon as possible and I need someone to call my mom." This RN brought patient a phone to call her mother. Patient stated "No. I don't want to right now." ED physician notified of patient's request for medication.). --06:55 Cherry Maurer R.N. Care transferred and report received (from ASH Carey). --07:18 Kanika Barajas R.N. 07:39 08/13/2016 Clonidine Topical 0.2 mg. Applied to the left upper arm. Allergies verified and confirmed 5 rights. --07:44 Miguel Birch R.N. 07:48 08/13/2016 Site #1 started via IV in the left hand with an 22g angiocath, with aseptic technique and good blood return; one attempt. Saline lock flushed with 10 mL saline (accessed by miguel Deluna RN). --07:51 Miguel Birch R.N. 07:49 08/13/2016 Started bag #1 1000 mL IV Fluids IV NS (Saline); at 1000 mL/hr over 1 hour(s) via site #1 via IV pump. Allergies verified and confirmed 5 rights. IV patency established. IV site checked: no pain, redness, or swelling. IV flushed thoroughly pre- and post-medication administration. --07:51 Miguel Birch R.N. 07:50 08/13/2016 Zofran (Ondansetron HCl) IVP 4 mg given over 1 minute(s) via site #1. Allergies verified and confirmed 5 rights. IV patency established. IV site checked: no pain, redness, or swelling. IV flushed thoroughly pre- and post-medication administration. --07:51 Miguel Birch R.N. 07:51 08/13/2016 Ativan (LORazepam) IVP 1 mg given over 1 minute(s) via site #1. Allergies verified, confirmed 5 rights and sedative warning given to the patient. IV patency established. IV site checked: no pain, redness, or swelling. IV flushed thoroughly pre- and post-medication administration. --07:51 Miguel Birch R.N. ( lab notified for blood draw.). --07:57 Kanika Barajas R.N. Reassessment after medication administered. She reports no complaints, she is resting quietly and she has had no adverse reaction. Overall patient status- she states feels the same. --07:58 Kanika Barajas R.N. 07:58 08/13/16. BP: 124/67. HR: 62. RR: 16. O2 saturation: 100%. Pain level now 7/10. --07:58 Jenn, Kanika, R.N. ( lab at the bedside for blood draw.). --07:59 Kanika Barajas R.N. 08:56 08/13/2016 Ativan (LORazepam) IVP 1 mg given over 2 minute(s) via site #1. Allergies verified, confirmed 5 rights and sedative warning given to the patient. IV patency established. IV site checked: no pain, redness, or swelling. IV flushed thoroughly pre- and post-medication administration. IVP given by RN. --08:56 Eric Santana R.N. 09:51 08/13/2016 IV Fluids IV NS Discontinued: bag #1 infused. Total amount infused: 1000 mL. IV patency established. IV site checked: no pain, redness, or swelling. IV flushed thoroughly. --09:51 Kanika Barajas R.N. DISPOSITION / DISCHARGE 09:50 08/13/2016 Site #1 removed upon discharge. Catheter intact. Manual pressure and bandaid applied. --09:50 Kanika Barajas R.N. Condition at departure: stable. No learning barriers present. Discharge instructions provided and reviewed with the patient. Reviewed medication(s) side effects, precautions, dosing and course information. Prescription(s) given to the patient. Reviewed referral to family practice for followup. Patient verbalized understanding. Written instructions provided in Azeri. The patient was discharged home and accompanied by family. She left the Emergency Department ambulatory and via private vehicle. Family member driving. Medication list reviewed and validated. --09:51 Kanika Barajas R.N. 09:50 08/13/16. BP: 110/61. HR: 90. RR: 16. O2 saturation: 100%. Temp: 98.7 F. Pain level now 0/10. --09:51 Kanika Barajas R.N. Departure time: :51. --09:51 Kanika Barajas R.N. Locked/Released at 08/13/2016 9:57 by Kanika Barajas R.N.
--- NOTE | 2016-08-13 09:33 | ED ORDER SUMMARY ---
..... Patient: TYRELL LAROSE OrderSheet [facility] VisitID: [id number] [address] [place], [place] [id number], F Registration Date/Time: 08/13/2016 ORDER SHEET Weight: 45.3 kg (estimated) Allergies: None GENERAL ORDERS: UA-Culture if indicated Urgent (06:59 08/13/2016 Manny ODOM) (Ack 7:01 AMcQuoid ER Tech1) (7:51 MWinterer R.N.) Cardiac Panel Stat (06:08/13/2016 Manny ODOM) (Ack 7:01 AMcQuoid ER Tech1) (8:04 TBergley) Urine Urgent (:08/13/2016 Manny ODOM) (Ack 7:01 AMcQuoid ER Tech1) (7:51 MWinterer R.N.) Urine Drug Screen Urgent (06:08/13/2016 Manny ODOM) (Ack 7:01 AMcQuoid ER Tech1) (7:51 MWinterer R.N.) MEDICATION ORDERS: Clonidine Topical 0.2 mg (NOW) (06:58 08/13/2016 Manny ODOM) (Ack 7:24 MWinterer R.N.) (7:44 MWinterer R.N.) IV FLUIDS: IV NS : initial bolus 1000 mL (1000 mL/hr), then none - for X1 (NOW); Routine (06:58 08/13/2016 Manny ODOM) (Ack 7:24 MWinterer R.N.) (7:51 MWinterer R.N.) Ativan IV 1 mg (NOW) (06:58 08/13/2016 Manny ODOM) (Ack 7:24 MWinterer R.N.) (7:51 MWinterer R.N.) Zofran IV 4 mg (NOW) (06:58 08/13/2016 Manny ODOM) (Ack 7:24 MWinterer R.N.) (7:51 MWinterer R.N.) Ativan IV 1 mg (NOW) (08:53 08/13/2016 SReitz R.N. verbal order read back to Manny ODOM) (8:56 Luann Carrillo) Ativan IV 1 mg (NOW) (08:54 08/13/2016 Manny ODOM) (Cancelled: Duplicate Order8:54 Manny ODOM) ORDER SHEET NOTES: [Electronically signed by Kanika Barajas R.N. (09:57 08/13/2016)] [Electronically signed by Mau Swanson MD (22:49 08/16/2016)] [Electronically locked/signed by Kanika Barajas R.N. (09:57 08/13/2016)]
--- NOTE | 2016-08-13 09:33 | ED CLINICAL REPORT ---
Clinical Report - Physicians/Mid Levels [facility] [address] [place] [address] 08/13/2016 6:29 Patient: TYRELL LAROSE Time Seen: 06:54 Aug 13 2016. Arrived- By ambulance. Historian- patient and EMS personnel. CPT: ER phys charges level 4 (#[id number]). HISTORY OF PRESENT ILLNESS Chief Complaint: "GOT THE SHAKES". ; N/V/D. Symptoms started yesterday. Substances abused: Amphetamines and heroin. The patient has had tremors. The symptoms are described as moderate. No injuries noted. Similar symptoms previously: Recent medical care: Not recently seen/assessed. REVIEW OF SYSTEMS The patient has experienced sweats. No headache, dizziness, weakness, chest pain or palpitations. No black stools, sore throat, cough, difficulty breathing or skin abscess. No joint pain or enlarged lymph nodes. No difficulty walking. All systems otherwise negative, except as recorded above. PAST HISTORY Hepatitis. Substance Abuse. Impetigo. Cellulitis. Dental Caries. Dental Pain. Immunizations. LNMP - Last Normal Menstrual Period. . Tooth decay. Medications: None. Allergies: None. SOCIAL HISTORY Heavy tobacco smoker (cigarette)- less than 1 pack per day. History of heavy drug use: heroin, methamphetamines. No alcohol use. Has social support. ADDITIONAL NOTES The nursing notes have been reviewed. PHYSICAL EXAM Vital Signs: 08/13/2016 06:34 BP: 125/76. HR: 67. RR: 12. O2 saturation: 100%. Temp: 97.8 F. Pain level now: 2/10. Appearance: Alert. Anxious. Patient in mild distress. Head: Head atraumatic. Eyes: Pupils equal, round and reactive to light. ENT: Airway intact. Moist mucous membranes. Pharynx normal. Neck: Normal inspection. CVS: Normal heart rate and rhythm. Heart sounds normal. Pulses normal. Respiratory: No respiratory distress. Breath sounds normal. Abdomen: Soft and nontender. Back: Normal inspection. Skin: Skin warm. Normal skin color. No rash. Extremities: Extremities exhibit normal ROM. No lower extremity edema. Neuro: Alert. Oriented X 3. Mood/affect normal. Speech normal. Cranial nerves normal (as tested). No cerebellar findings. No motor deficit. No sensory deficit. Reflexes normal. (tremor at rest . Agitation.). LABS, X-RAYS, AND EKG Laboratory Tests: UA-Culture if indicated: (KUMAR: 08/13/2016 07:50) ( [facility] 08/13/2016 08:24) Final results Test Result Flag Units (Reference) URINE COLOR YELLOW URINE APPEARANCE CLEAR URINE GLUCOSE NEGATIVE (NEGATIVE) URINE BILIRUBIN NEGATIVE (NEGATIVE) URINE KETONE TRACE (NEGATIVE) URINE SPECIFIC GRAVITY 1.015 (1.010-1.030) URINE PH 6.5 (5.0-8.0) URINE PROTEIN TRACE (NEGATIVE) URINE UROBILINOGEN 0.2 EU/dL (0.2-1.0) URINE NITRITE NEGATIVE (NEGATIVE) URINE BLOOD TRACE-LYSED (NEGATIVE) URINE LEUK ESTERASE NEGATIVE (NEGATIVE) URINE RBC 1-3 rbc/hpf (0-1) URINE WBC NONE SEEN wbc/hpf (0-1) URINE EPITHELIAL CELLS 0-1 EPI/hpf (0-5) URINE BACTERIA NONE SEEN (NONE SEEN) URINE COMMENT CULT NOT INDICATED 1+ MUCOUSURINE CULTURES ARE SET-UP BASED ON THE FOLLOWING CRITERIA:POSITIVE NITRITEPOSITIVE LEUKOCYTE ESTERASEGREATER THAN 10 WHITE BLOOD CELLSMODERATE (2+) OR GREATER BACTERIA Urine: (KUMAR: 08/13/2016 07:50) ( [facility] 08/13/2016 08:07) Final results Test Result Flag Units (Reference) URINE NEGATIVE CBC w Diff: (KUMAR: 08/13/2016 08:03) ( [facility] 08/13/2016 08:18) Final results Test Result Flag Units (Reference) WHITE BLOOD COUNT 8.7 K/uL (4.5-11.5) RED BLOOD COUNT 4.47 M/uL (4.00-5.20) HEMOGLOBIN 12.3 gm/dL (12.0-16.0) HEMATOCRIT 37.5 % (36.0-46.0) MEAN CELL VOLUME 84 fL (80-100) MEAN CORPUSCULAR HGB 28 pg (26-34) MEAN CORPUSCULAR HGB CONC 33 g/dL (31-37) RED CELL DISTRIBUTION WIDTH 14.7 % (11.6-14.8) PLATELET COUNT 283 K/uL (150-400) NEUTROPHIL % 82.1 H % (50-75) LYMPH % 15.7 L % (25-40) MONO % 2.1 L % (3-14) EOSINOPHIL % 0 % (0-4) BASOPHIL % 0.1 % (0-2) Urine Drug Screen: (KUMAR: 08/13/2016 07:50) ( [facility] 08/13/[facility] 09:17) Final results Test Result Flag Units (Reference) AMPHETAMINE/METHAMPHETAMINE NEGATIVE (NEGATIVE) BARBITURATE NEGATIVE (NEGATIVE) BENZODIAZEPINE NEGATIVE (NEGATIVE) CANNABINOID POSITIVE H (NEGATIVE) COCAINE NEGATIVE (NEGATIVE) ECSTASY NEGATIVE (NEGATIVE) METHADONE NEGATIVE (NEGATIVE) OPIATE POSITIVE H (NEGATIVE) The urine drug screen is a qualitative screening test fordrug overdose and abuse. All screen results should beconsidered as presumptive.Drugs screened for are as follows:BenzodiazepinesCocaineAmphetamines/MetamphetaminesTHC (Tetrahydrocannabinol)OpiatesBarbituratesEcstasyMethadonePositive results are unconfirmed. For confirmation, notifythe lab for the specimen to be sent to the reference lab.All confirmations must be performed by a differentmethodology.The ingestion of natural herbal and plant productscontaining Ephedra/Ephedra metabolites can produce in urineone or more substances capable of cross reacting withamphetamine/methamphetamine immunoassays. These testsprovide a preliminary result only. A more specificalternative chemical method must be used to obtain aconfirmed analytical result. CHEM 13 PANEL: (KUMAR: 08/13/2016 08:03) ( [facility] 08/13/2016 09:11) Final results Test Result Flag Units (Reference) GLUCOSE 121 H mg/dL (70-110) BUN 10 mg/dL (7-18) CREATININE 0.5 L mg/dL (0.6-1.3) Estimated GFR >60 mL/min Estimated GFR- >60 mL/min Note: Persistent reduction over 3 months in eGFR<60 mL/min/1.73 m2 defines CKD. Patients with eGFR values>=60 mL/min/1.73 m2 may also have CKD if evidence ofpersistent proteinuria. Additional information may be foundat www.kidney.org. SODIUM 141 mmol/L (136-145) POTASSIUM 3.3 L mmol/L (3.5-5.1) CHLORIDE 103 mmol/L (98-107) CARBON DIOXIDE 25 mmol/L (21-32) CALCIUM 8.7 mg/dL (8.5-10.1) TOTAL PROTEIN 7.8 g/dL (6.4-8.2) ALBUMIN 3.5 g/dL (3.3-5.0) BILIRUBIN, TOTAL 0.4 mg/dL (0.0-1.0) ALKALINE PHOSPHATASE 79 U/L (46-116) AST (SGOT) 25 U/L (15-37) ALT (SGPT) 46 U/L (12-78) CPK 29 U/L (24-260) TROPONIN I <0.05 ng/mL (0.00-1.5) TROPONIN REFERENCE RANGE:<0.1 NEGATIVE0.1-1.5 INDETERMINANT>1.5 POSITIVE MAGNESIUM 2.1 mg/dL (1.8-2.4) . PROGRESS AND PROCEDURES Course of Care: IV NS Clinidine patch 0.2 mg \\Ativan 1 mg IV times 2. Patient is stable. Symptoms much better. Patient/family counseled. Disposition: Discharged. Condition: stable. CLINICAL IMPRESSION Narcotic withdrawal Substance abuse problems: abuse of opiates and methamphetamine. INSTRUCTIONS Stay with responsible adult family member (or other responsible adult) for three days until better. (Wear clonidine patch for the next week. Get to narcotics annonymous. Get to in patient program.). Warnings: Further evaluation is necessary. SEDATIVE MEDICATION: You were given sedative medication during your visit. Do not drive or operate dangerous machinery. GENERAL WARNINGS: Return or contact your physician immediately if your condition worsens or changes unexpectedly, if not improving as expected, or if other problems arise. Prescription Medications: Zofran (orally disintegrating tablets) 4 mg: take 1 orally every 6 hours as needed for nausea. Dispense ten (10). No refill. Substitution is permissible. Ativan 0.5 mg: take 1-2 orally every 6 hours as needed. Dispense ten (10). No refill. Follow-up: Follow up with your doctor in five days. Call for an appointment. Understanding of the discharge instructions verbalized by patient. (Electronically signed by Mau Swanson MD 08/16/2016 22:49)
--- NOTE | 2016-08-16 22:50 | ED MAR SUMMARY ---
..... Medication Administration Record [facility] [address] [place] [address] Patient: TYRELL LAROSE Visit ID: [id number] 35y, F Weight: 45.3 kg Height/Length: 65 in BMI: 16.6 ALLERGIES: None Given 07:39 08/13/2016 Roxana Birch R.N. Medication Administered: CLONIDINE [TOPICAL], Dose: 0.2 mg Topical. Medication Ordered: Clonidine Topical 0.2 mg (NOW). Start 07:49 08/13/2016 Roxana Birch R.N., Stop 09:51 08/13/2016 Kanika Barajas R.N. Medication Administered: IV NS (SALINE), Dose: IV Fluids over 1 hour(s), Rate: 1000 mL/hr, Dispensed: 1000 mL bag, Site: #1 left hand. Medication Ordered: IV NS : initial bolus 1000 mL (1000 mL/hr), then none - for X1 (NOW); Routine. Given 07:50 08/13/2016 Roxana Birch R.N. Medication Administered: ZOFRAN [IVP] (ONDANSETRON HCL), Dose: 4 mg IVP over 1 minute(s), Site: #1 left hand. Medication Ordered: Zofran IV 4 mg (NOW). Given 07:51 08/13/2016 Roxana Birch R.N. Medication Administered: ATIVAN [IVP] (LORAZEPAM), Dose: 1 mg IVP over 1 minute(s), Site: #1 left hand. Medication Ordered: Ativan IV 1 mg (NOW). Given 08:56 08/13/2016 Eric Santana R.N. Medication Administered: ATIVAN [IVP] (LORAZEPAM), Dose: 1 mg IVP over 2 minute(s), Site: #1 left hand. Medication Ordered: Ativan IV 1 mg (NOW).
--- NOTE | 2016-08-16 22:50 | ED MAR SUMMARY ---
..... Medication Administration Record [facility] [address] [place] [address] Patient: TYRELL LAROSE Visit ID: [id number] 35y, F Weight: 45.3 kg Height/Length: 65 in BMI: 16.6 ALLERGIES: None Given 07:39 08/13/2016 Roxana Birch R.N. Medication Administered: CLONIDINE [TOPICAL], Dose: 0.2 mg Topical. Medication Ordered: Clonidine Topical 0.2 mg (NOW). Start 07:49 08/13/2016 Roxana Birch R.N., Stop 09:51 08/13/2016 Kanika Barajas R.N. Medication Administered: IV NS (SALINE), Dose: IV Fluids over 1 hour(s), Rate: 1000 mL/hr, Dispensed: 1000 mL bag, Site: #1 left hand. Medication Ordered: IV NS : initial bolus 1000 mL (1000 mL/hr), then none - for X1 (NOW); Routine. Given 07:50 08/13/2016 Roxana Birch R.N. Medication Administered: ZOFRAN [IVP] (ONDANSETRON HCL), Dose: 4 mg IVP over 1 minute(s), Site: #1 left hand. Medication Ordered: Zofran IV 4 mg (NOW). Given 07:51 08/13/2016 Roxana Birch R.N. Medication Administered: ATIVAN [IVP] (LORAZEPAM), Dose: 1 mg IVP over 1 minute(s), Site: #1 left hand. Medication Ordered: Ativan IV 1 mg (NOW). Given 08:56 08/13/2016 Eric Santana R.N. Medication Administered: ATIVAN [IVP] (LORAZEPAM), Dose: 1 mg IVP over 2 minute(s), Site: #1 left hand. Medication Ordered: Ativan IV 1 mg (NOW).
--- NOTE | 2016-08-16 22:50 | ED MED RECONCILIATION SUMMARY ---
Patient: TYRELL LAROSE Medication Reconciliation Report [facility] VisitID: [id number] [address] [place] [address] 35y, F Registration Date/Time: 08/13/2016 Weight: 45.3 kg Height/Length: 65 in. BMI: 16.6 ALLERGIES: None The patient's Home Medications are listed below: NONE. The source(s) of the original Home Medication information: Not obtained. The following Medications were given to the patient in the Emergency Department: Clonidine [Topical] Topical 0.2 mg, administered: 08/13/2016 7:39:00 AM IV NS IV Fluids bolus 0, then 1000 mL/hr, administered: 08/13/2016 7:49:00 AM Zofran [IVP] IVP 4 mg, administered: 08/13/2016 7:50:00 AM Ativan [IVP] IVP 1 mg, administered: 08/13/2016 7:51:00 AM Ativan [IVP] IVP 1 mg, administered: 08/13/2016 8:56:00 AM The following Medications were prescribed to the patient: Zofran (orally disintegrating tablets) 4 mg: take 1 orally every 6 hours as needed for nausea. Dispense ten (10). No refill. Substitution is permissible. -- Mau Swanson MD Ativan 0.5 mg: take 1-2 orally every 6 hours as needed. Dispense ten (10). No refill. -- Mau Swanson MD
--- NOTE | 2016-08-16 22:50 | ED DISCHARGE INSTRUCTIONS ---
Patient: TYRELL LAROSE General Instructions [facility] VisitID: [id number] [place] [address] 35y, F Registration Date/Time: 08/13/2016 Narcotic withdrawal Substance abuse problems: abuse of opiates and methamphetamine. INSTRUCTIONS Stay with responsible adult family member (or other responsible adult) for three days until better. (Wear clonidine patch for the next week. Get to narcotics annonymous. Get to in patient program.). Warnings: Further evaluation is necessary. SEDATIVE MEDICATION: You were given sedative medication during your visit. Do not drive or operate dangerous machinery. GENERAL WARNINGS: Return or contact your physician immediately if your condition worsens or changes unexpectedly, if not improving as expected, or if other problems arise. Prescription Medications: Zofran (orally disintegrating tablets) 4 mg: take 1 orally every 6 hours as needed for nausea. Dispense ten (10). No refill. Substitution is permissible. Ativan 0.5 mg: take 1-2 orally every 6 hours as needed. Dispense ten (10). No refill. Follow-up: Follow up with your doctor in five days. Call for an appointment. Understanding of the discharge instructions verbalized by patient. ADDITIONAL INFORMATION Ondansetron Oral disintegrating tablet What is this medicine? ONDANSETRON (on MAINOR se chetan) is used to treat nausea and vomiting caused by chemotherapy. It is also used to prevent or treat nausea and vomiting after surgery. How should I use this medicine? These tablets are made to dissolve in the mouth. Do not try to push the tablet through the foil backing. With dry hands, peel away the foil backing and gently remove the tablet. Place the tablet in the mouth and allow it to dissolve, then swallow. While you may take these tablets with water, it is not necessary to do so. Talk to your data capture clerk regarding the use of this medicine in children. Special care may be needed. What side effects may I notice from receiving this medicine? Side effects that you should report to your doctor or health patient care associate as soon as possible: allergic reactions like skin rash, itching or hives, swelling of the face, lips, or tongue breathing problems dizziness fast or irregular heartbeat feeling faint or lightheaded, falls fever and chills swelling of the hands and feet tightness in the chest Side effects that usually do not require medical attention (report to your doctor or health patient care associate if they continue or are bothersome): constipation or diarrhea headache What may interact with this medicine? Do not take this medicine with any of the following medications: -apomorphine -cisapride -dofetilide -dronedarone -pimozide -thioridazine -ziprasidone This medicine may also interact with the following medications: -carbamazepine -phenytoin -rifampicin -tramadol -other medicines that prolong the QT interval (cause an abnormal heart rhythm) What if I miss a dose? If you miss a dose, take it as soon as you can. If it is almost time for your next dose, take only that dose. Do not take double or extra doses. Where should I keep my medicine? Keep out of the reach of children. Store between 2 and 30 degrees C (36 and 86 degrees F). Throw away any unused medicine after the expiration date. What should I tell my health care provider before I take this medicine? They need to know if you have any of these conditions: heart disease history of irregular heartbeat liver disease low levels of magnesium or potassium in the blood an unusual or allergic reaction to ondansetron, granisetron, other medicines, foods, dyes, or preservatives or trying to get breast-feeding What should I watch for while using this medicine? Check with your doctor or health patient care associate as soon as you can if you have any sign of an allergic reaction. Lorazepam Oral tablet What is this medicine? LORAZEPAM (yoli A ze rd) is a benzodiazepine. It is used to treat anxiety. How should I use this medicine? Take this medicine by mouth with a glass of water. Follow the directions on the prescription label. If it upsets your stomach, take it with food or milk. Take your medicine at regular intervals. Do not take it more often than directed. Do not stop taking except on the advice of your doctor or health patient care associate. Talk to your data capture clerk regarding the use of this medicine in children. Special care may be needed. What side effects may I notice from receiving this medicine? Side effects that you should report to your doctor or health patient care associate as soon as possible: changes in vision confusion depression mood changes, excitability or aggressive behavior movement difficulty, staggering or jerky movements muscle cramps restlessness weakness or tiredness Side effects that usually do not require medical attention (report to your doctor or health patient care associate if they continue or are bothersome): constipation or diarrhea difficulty sleeping, nightmares dizziness, drowsiness headache nausea, vomiting What may interact with this medicine? barbiturate medicines for inducing sleep or treating seizures, like phenobarbital clozapine medicines for depression, mental problems or psychiatric disturbances medicines for sleep phenytoin probenecid theophylline valproic acid What if I miss a dose? If you miss a dose, take it as soon as you can. If it is almost time for your next dose, take only that dose. Do not take double or extra doses. Where should I keep my medicine? Keep out of the reach of children. This medicine can be abused. Keep your medicine in a safe place to protect it from theft. Do not share this medicine with anyone. Selling or giving away this medicine is dangerous and against the law. Store at room temperature between 20 and 25 degrees C (68 and 77 degrees F). Protect from light. Keep container tightly closed. Throw away any unused medicine after the expiration date. What should I tell my health care provider before I take this medicine? They need to know if you have any of these conditions: alcohol or drug abuse problem bipolar disorder, depression, psychosis or other mental health condition glaucoma kidney or liver disease lung disease or breathing difficulties myasthenia gravis Parkinson's disease seizures or a history of seizures suicidal thoughts an unusual or allergic reaction to lorazepam, other benzodiazepines, foods, dyes, or preservatives or trying to get breast-feeding What should I watch for while using this medicine? Visit your doctor or health patient care associate for regular checks on your progress. Your body may become dependent on this medicine, ask your doctor or health patient care associate if you still need to take it. However, if you have been taking this medicine regularly for some time, do not suddenly stop taking it. You must gradually reduce the dose or you may get severe side effects. Ask your doctor or health patient care associate for advice before increasing or decreasing the dose. Even after you stop taking this medicine it can still affect your body for several days. You may get drowsy or dizzy. Do not drive, use machinery, or do anything that needs mental alertness until you know how this medicine affects you. To reduce the risk of dizzy and fainting spells, do not stand or sit up quickly, especially if you are an older patient. Alcohol may increase dizziness and drowsiness. Avoid alcoholic drinks. Do not treat yourself for coughs, colds or allergies without asking your doctor or health patient care associate for advice. Some ingredients can increase possible side effects. You have been given the following additional information: Ondansetron Oral disintegrating tablet Lorazepam Oral tablet Stay with responsible adult family member (or other responsible adult) for three days until better. (Electronically signed by Mau Swanson MD 08/16/2016 22:49)
--- NOTE | 2016-08-16 22:50 | ED MED RECONCILIATION SUMMARY ---
Patient: TYRELL LAROSE Medication Reconciliation Report [facility] VisitID: [id number] [address] [place] [address] 35y, F Registration Date/Time: 08/13/2016 Weight: 45.3 kg Height/Length: 65 in. BMI: 16.6 ALLERGIES: None The patient's Home Medications are listed below: NONE. The source(s) of the original Home Medication information: Not obtained. The following Medications were given to the patient in the Emergency Department: Clonidine [Topical] Topical 0.2 mg, administered: 08/13/2016 7:39:00 AM IV NS IV Fluids bolus 0, then 1000 mL/hr, administered: 08/13/2016 7:49:00 AM Zofran [IVP] IVP 4 mg, administered: 08/13/2016 7:50:00 AM Ativan [IVP] IVP 1 mg, administered: 08/13/2016 7:51:00 AM Ativan [IVP] IVP 1 mg, administered: 08/13/2016 8:56:00 AM The following Medications were prescribed to the patient: Zofran (orally disintegrating tablets) 4 mg: take 1 orally every 6 hours as needed for nausea. Dispense ten (10). No refill. Substitution is permissible. -- Mau Swanson MD Ativan 0.5 mg: take 1-2 orally every 6 hours as needed. Dispense ten (10). No refill. -- Mau Swanson MD
--- NOTE | 2016-08-16 22:50 | ED DISCHARGE INSTRUCTIONS ---
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 INSTRUCTIONS Stay with responsible adult family member (or other responsible adult) for three days until better. (Wear clonidine patch for the next week. Get to narcotics annonymous. Get to in patient program.). Warnings: Further evaluation is necessary. SEDATIVE MEDICATION: You were given sedative medication during your visit. Do not drive or operate dangerous machinery. GENERAL WARNINGS: Return or contact your physician immediately if your condition worsens or changes unexpectedly, if not improving as expected, or if other problems arise. Prescription Medications: Zofran (orally disintegrating tablets) 4 mg: take 1 orally every 6 hours as needed for nausea. Dispense ten (10). No refill. Substitution is permissible. Ativan 0.5 mg: take 1-2 orally every 6 hours as needed. Dispense ten (10). No refill. Follow-up: Follow up with your doctor in five days. Call for an appointment. Understanding of the discharge instructions verbalized by patient. ADDITIONAL INFORMATION Ondansetron Oral disintegrating tablet What is this medicine? ONDANSETRON (on MAINOR se chetan) is used to treat nausea and vomiting caused by chemotherapy. It is also used to prevent or treat nausea and vomiting after surgery. How should I use this medicine? These tablets are made to dissolve in the mouth. Do not try to push the tablet through the foil backing. With dry hands, peel away the foil backing and gently remove the tablet. Place the tablet in the mouth and allow it to dissolve, then swallow. While you may take these tablets with water, it is not necessary to do so. Talk to your emulsion operator regarding the use of this medicine in children. Special care may be needed. What side effects may I notice from receiving this medicine? Side effects that you should report to your doctor or health healthcare or medical as soon as possible: allergic reactions like skin rash, itching or hives, swelling of the face, lips, or tongue breathing problems dizziness fast or irregular heartbeat feeling faint or lightheaded, falls fever and chills swelling of the hands and feet tightness in the chest Side effects that usually do not require medical attention (report to your doctor or health healthcare or medical if they continue or are bothersome): constipation or diarrhea headache What may interact with this medicine? Do not take this medicine with any of the following medications: -apomorphine -cisapride -dofetilide -dronedarone -pimozide -thioridazine -ziprasidone This medicine may also interact with the following medications: -carbamazepine -phenytoin -rifampicin -tramadol -other medicines that prolong the QT interval (cause an abnormal heart rhythm) What if I miss a dose? If you miss a dose, take it as soon as you can. If it is almost time for your next dose, take only that dose. Do not take double or extra doses. Where should I keep my medicine? Keep out of the reach of children. Store between 2 and 30 degrees C (36 and 86 degrees F). Throw away any unused medicine after the expiration date. What should I tell my health care provider before I take this medicine? They need to know if you have any of these conditions: heart disease history of irregular heartbeat liver disease low levels of magnesium or potassium in the blood an unusual or allergic reaction to ondansetron, granisetron, other medicines, foods, dyes, or preservatives or trying to get breast-feeding What should I watch for while using this medicine? Check with your doctor or health healthcare or medical as soon as you can if you have any sign of an allergic reaction. Lorazepam Oral tablet What is this medicine? LORAZEPAM (yoli A ze rd) is a benzodiazepine. It is used to treat anxiety. How should I use this medicine? Take this medicine by mouth with a glass of water. Follow the directions on the prescription label. If it upsets your stomach, take it with food or milk. Take your medicine at regular intervals. Do not take it more often than directed. Do not stop taking except on the advice of your doctor or health healthcare or medical. Talk to your emulsion operator regarding the use of this medicine in children. Special care may be needed. What side effects may I notice from receiving this medicine? Side effects that you should report to your doctor or health healthcare or medical as soon as possible: changes in vision confusion depression mood changes, excitability or aggressive behavior movement difficulty, staggering or jerky movements muscle cramps restlessness weakness or tiredness Side effects that usually do not require medical attention (report to your doctor or health healthcare or medical if they continue or are bothersome): constipation or diarrhea difficulty sleeping, nightmares dizziness, drowsiness headache nausea, vomiting What may interact with this medicine? barbiturate medicines for inducing sleep or treating seizures, like phenobarbital clozapine medicines for depression, mental problems or psychiatric disturbances medicines for sleep phenytoin probenecid theophylline valproic acid What if I miss a dose? If you miss a dose, take it as soon as you can. If it is almost time for your next dose, take only that dose. Do not take double or extra doses. Where should I keep my medicine? Keep out of the reach of children. This medicine can be abused. Keep your medicine in a safe place to protect it from theft. Do not share this medicine with anyone. Selling or giving away this medicine is dangerous and against the law. Store at room temperature between 20 and 25 degrees C (68 and 77 degrees F). Protect from light. Keep container tightly closed. Throw away any unused medicine after the expiration date. What should I tell my health care provider before I take this medicine? They need to know if you have any of these conditions: alcohol or drug abuse problem bipolar disorder, depression, psychosis or other mental health condition glaucoma kidney or liver disease lung disease or breathing difficulties myasthenia gravis Parkinson's disease seizures or a history of seizures suicidal thoughts an unusual or allergic reaction to lorazepam, other benzodiazepines, foods, dyes, or preservatives or trying to get breast-feeding What should I watch for while using this medicine? Visit your doctor or health healthcare or medical for regular checks on your progress. Your body may become dependent on this medicine, ask your doctor or health healthcare or medical if you still need to take it. However, if you have been taking this medicine regularly for some time, do not suddenly stop taking it. You must gradually reduce the dose or you may get severe side effects. Ask your doctor or health healthcare or medical for advice before increasing or decreasing the dose. Even after you stop taking this medicine it can still affect your body for several days. You may get drowsy or dizzy. Do not drive, use machinery, or do anything that needs mental alertness until you know how this medicine affects you. To reduce the risk of dizzy and fainting spells, do not stand or sit up quickly, especially if you are an older patient. Alcohol may increase dizziness and drowsiness. Avoid alcoholic drinks. Do not treat yourself for coughs, colds or allergies without asking your doctor or health healthcare or medical for advice. Some ingredients can increase possible side effects. You have been given the following additional information: Ondansetron Oral disintegrating tablet Lorazepam Oral tablet Stay with responsible adult family member (or other responsible adult) for three days until better. (Electronically signed by Mau Swanson MD 08/16/2016 22:49)
== END 2016-08-13 09:55 | disposition home or self-care (01) ==
LOC: ED SRH 06:29
DX: F11.23 Opioid dependence with withdrawal (principal); F15.23 Other stimulant dependence with withdrawal; F17.210 Nicotine dependence, cigarettes, uncomplicated
CPT/HCPCS: 90004; 90074; 90100; 90616; 92610; 92720; 92760; 92761; 92762; 92763; 92764; 92765; 92766; 92767; 93070; 95059